=== PATIENT | male | born 1955 | race Two or more races ===

== ENCOUNTER 2016-10-30 01:30 | Emergency (ER) | payer OTHER ==
[~2016-10-30] VITALS: Ht 182.9 cm; Wt 49.9 kg
[2016-10-30 02:04] LABS: Basophils # (auto) 0 uL; Basophils % (auto) 0.2 % (0.0-2.0); Eosinophils # (auto) 0.3 uL; Hematocrit 48.7 % (41.0-53.0); Hemoglobin 15.9 g/dL (13.5-17.5); Lymphocytes % (auto) 23.8 % (10.0-50.0); Mean Corpuscular Hemoglobin 31.2 pg (28.0-32.0); Mean Corpuscular Hgb Conc. 32.7 g/dL (32.0-36.0); Mean Corpuscular Volume 95.3 fL (80.0-100.0); Mean Platelet Volume 7.1 fL (7.4-10.4); Monocytes # (auto) 0.8 uL; Monocytes % (auto) 9.7 % (0.0-12.0); Neutrophils # (auto) 5.4 uL; Neutrophils % (auto) 62.3 % (37.0-80.0); Platelet Count (auto) 282 10^3/uL (140-450); Red Cell Distribution Width 13.3 % (11.6-16.0); White Blood Cell 8.6 10^3/uL (4.4-10.8)
[2016-10-30 02:23] LABS: Partial Thromboplastin Time 34.1 sec (22.64-33.71)
[2016-10-30 02:30] LABS: INR 2.48 (0.9-1.15); Prothrombin Time 25.5 sec (9.37-12.3)
[2016-10-30 02:38] LABS: Albumin 3.2 g/dL (3.4-5.0); BUN/Creatinine Ratio 26.4; Calcium 8.2 mg/dL (8.5-10.1); Potassium 4.3 mmol/L (3.5-5.1)
[2016-10-30 02:41] LABS: Bilirubin, Total 0.4 mg/dL (0.2-1.0); Total Protein 7.7 g/dL (6.4-8.2)
[2016-10-30] MEDS ORDERED: CARV25TA55 PO (02:45)
[2016-10-30] MEDS ORDERED: FURO20TA3 PO (02:45)
[2016-10-30] MEDS ORDERED: ATOR20TA PO (02:45)
[2016-10-30] MEDS ORDERED: LISI-646 PO (02:45)
[2016-10-30] MEDS ORDERED: WARF5TAB PO (02:45)
[2016-10-30] MEDS ORDERED: SODIUM CHLORIDE 0.9% 1,000 ML IV ONE (03:25)
[2016-10-30] MEDS ORDERED: NALBUPHINE HCL 10 MG/1ml INJECTION IV ONE (03:30)
[2016-10-30] MEDS ORDERED: ONDANSETRON HCL 4 MG/2 ML VIAL IV ONE (03:30)
[2016-10-30 06:00] VITALS: BP 141/78
== END 2016-10-30 06:28 | disposition home or self-care (01) ==
LOC: EDBD 01:30 → ER 01:35
DX: R04.0 Epistaxis (principal); E46 Unspecified protein-calorie malnutrition; Z68.1 Body mass index [BMI] 19.9 or less, adult; I11.0 Hypertensive heart disease with heart failure; I50.9 Heart failure, unspecified
CPT/HCPCS: 30905; 36415; 80053; 85025; 85049; 85610; 85730; 96361; 96374; 96375; 99284; J2300; J2405